=== PATIENT | male | born 1955 | race Caucasian/White ===

== ENCOUNTER 2019-01-12 07:51 | Emergency (ER) | payer OTHER ==
[~2019-01-12] VITALS: Ht 182.9 cm; Wt 99.0 kg
[~2019-01-12 07:51] MED LIST: CODE BLUE PARTICIPANT 1 EA MISC MC ONE; DEXTROSE 50% 50 ML SYR IVP ONE; EPINEPHrine PFS 0.1 MG/ML SYR IVP ONE; SODIUM BICARBONATE 8.4% PFS 50 MEQ/50 ML SYR IVP ONE; TEMA15CA24 PO
--- NOTE | 2019-01-12 07:51 | NUR ---
FULL ARREST Giovanny GONGORA RCP AND Keyon PEDRAZA RCP ATTENDING
--- NOTE | 2019-01-12 07:53 | NUR ---
PT BIBA ALS, FULL ARREST, TO BED 10
[2019-01-12 07:55] VITALS: BP 0/0
--- NOTE | 2019-01-12 08:00 | NUR ---
KIRSTIE WHALEY FROM HOME. PER [facility] LAST SEEN BY FAMILY AT 2300 ON 01/11/19 AND FAMILY CAME TO CHECK ON HIM AT 0710 FOUND UNRESPONSIVE AT HOME CALLED 911. [facility] ARRIVED ON SCENE AT 0720 CPR STARTED, INTUBATED WITH [place] AIRWAY BY [facility], RT LOWER LEG IO ESTABELISHED BY [facility], GIVEN EPINEPRINE X4 BY [facility], ARRIVED IN ER 0749 CPR RESUMES BY STAFF, SEE CPR CODE SHEET FOR EXACT TIME. DR JANSEN AT BEDSIDE. PRONOUNCED AT AT [address] JANSEN.
--- NOTE | 2019-01-12 08:30 | NUR ---
DR. JANSEN SPOKE TO NEPHEW/NIECE, NEXT OF KIN OF PATIENT
--- NOTE | 2019-01-12 08:43 | NUR ---
SPOKE TO NEILA FROM [facility]. WILL FOLLOW UP IN ONE HOUR
--- NOTE | 2019-01-12 09:00 | NUR ---
SPOKE TO ROSALINDA FROM [facility] OFFICE. WILL CALL ME BACK
--- NOTE | 2019-01-12 09:43 | NUR ---
SPOKE TO NIELS, NEPHEW OF PATIENT. WILL GET INFORMATION FROM HOME RE: PRIMARY DOCTOR AND DISPOSITION
--- NOTE | 2019-01-12 09:45 | NUR ---
AWAITING FOR [facility] CALLBACK
--- NOTE | 2019-01-12 10:34 | NUR ---
LAZARO HERNANDEZ CALLED BACK RELEASING BODY. #[phone]
--- NOTE | 2019-01-12 10:54 | NUR ---
IVAN FROM [facility] BODY # [id number]
--- NOTE | 2019-01-12 11:06 | NUR ---
AWAITING FOR NEXT OF KIN NIELS TO GIVE THE INFORMATION. NIELS WENT HOME TO GET SOME PAPER WORKS.
[2019-01-12 11:35] VITALS: BP 0/0
--- NOTE | 2019-01-12 11:48 | NUR ---
MARNIE PROVIDED LIST OF MORTUARYS. STILL CAN NOT PROVIDE PMD OF PATIENT
--- NOTE | 2019-01-12 13:00 | NUR ---
FAMILY CALLED [facility] PATIENT WISHES TO DONATE BODY FOR [facility].
--- NOTE | 2019-01-12 13:30 | NUR ---
PATIENTS BODY MOVED TO RM. 115. FAMILY MADE AWARE.
--- NOTE | 2019-01-12 13:46 | NUR ---
PETROS FROM [facility] CALLED FOR ETA OF 1 HOUR. CALLED [facility] CHARGE NURSE TO NOTIFY FAMILY IN THE ROOM
--- NOTE | 2019-01-12 15:17 | NUR ---
PATIENT'S BODY RELEASED TO [facility] FROM ROOM 115. [facility] SECURITY PRESENT.
== END 2019-01-12 15:17 | disposition expired ==
LOC: MED 07:51
DX: I46.9 Cardiac arrest, cause unspecified (principal); E16.2 Hypoglycemia, unspecified
CPT/HCPCS: 92950; 99283; J0171; 99285